=== PATIENT | male | born 1935 | race Caucasian/White ===

== ENCOUNTER → 2022-06-20 | Outpatient (CLI) | payer MEDICARE ==
[~2022-06-20] MED LIST: GADOBENATE DIMEGLUMINE 1 ML IV ONE
[2022-06-20 12:47] LABS: CREATININE, SERUM 0.88 mg/dL (0.72-1.25)
== END ==
LOC: MRI 09:55
PROVIDERS: ATTEND Surgery
DX: C61 Malignant neoplasm of prostate (principal)
CPT/HCPCS: 36415; 72197; 82565; 84520